=== PATIENT | female | born 1955 | race Caucasian/White ===

== ENCOUNTER → 2017-01-23 | Outpatient (CLI) | payer MEDICARE | PROVIDERS: ATTEND Nurse Practitioner Family | DX: F33.1 Major depressive disorder, recurrent, moderate (principal); F41.8 Other specified anxiety disorders | CPT/HCPCS: 90792 ==

== ENCOUNTER → 2017-01-27 | Outpatient (CLI) | payer MEDICARE | LOC: MW.CHPS 08:00 | PROVIDERS: ATTEND Physician Assistant | DX: L72.11 Pilar cyst (principal); L82.1 Other seborrheic keratosis | CPT/HCPCS: 11402; 17110; 99202 ==

== ENCOUNTER → 2017-02-06 | Outpatient (CLI) | payer MEDICARE | PROVIDERS: ATTEND Nurse Practitioner Family | DX: F33.1 Major depressive disorder, recurrent, moderate (principal); F41.8 Other specified anxiety disorders | CPT/HCPCS: 99214 ==

== ENCOUNTER 2017-03-01 23:30 | Emergency (ER) | payer MEDICARE ==
--- NOTE | 2017-03-01 23:45 | EDM.PDOC ---
ED HPI GENERAL MEDICAL PROBLEM - General Chief Complaint: Upper Extremity Injury/Pain Stated Complaint: POSSIBLE BREAK OR FRACTURE OF RIGHT WRIST Time Seen by Provider: 03/01/17 23:39 - History of Present Illness INITIAL COMMENTS - FREE TEXT/NARRATIVE: HISTORY AND PHYSICAL: History of present illness: Patient is a 61-year-old white female who suffers from acute right hand and wrist injury status post fall this happened about 6 hours prior she denies other tremor concern Review of systems: As per history of present illness and below otherwise all systems reviewed and negative. Past medical history: As per history of present illness and as reviewed below otherwise noncontributory. Surgical history: As per history of present illness and as reviewed below otherwise noncontributory. Social history: No reported history of drug or alcohol abuse. Family history: As per history of present illness and as reviewed below otherwise noncontributory. Physical exam: HEENT: Atraumatic, normocephalic, pupils reactive, negative for conjunctival pallor or scleral icterus, mucous membranes moist, throat clear, neck supple, nontender, trachea midline. Lungs: Clear to auscultation, breath sounds equal bilaterally, chest nontender. Heart: S1S2, regular, negative for clicks, rubs, or JVD. Abdomen: Soft, nondistended, nontender. Negative for masses or hepatosplenomegaly. Negative for costovertebral tenderness. Pelvis: Stable nontender. Genitourinary: Deferred. Rectal: Deferred. Extremities: Patient's pain and tenderness over the dorsal aspect of her distal radius and also the dorsal aspect of her proximal hand no gross deformity CMS neurovascular exams unremarkable Neuro: Awake, alert, oriented. Cranial nerves II through XII unremarkable. Cerebellum unremarkable. Motor and sensory unremarkable throughout. Exam nonfocal. Diagnostics: X-ray right hand/wrist Therapeutics: To be determined Impression: #1 observation status post fall #2 acute right wrist/hand injury Definitive disposition and diagnosis as appropriate pending reevaluation and review of above. - Related Data Allergies Allergy/AdvReac Type Severity Reaction Status Date / Time prochlorperazine Allergy Anaphylactic Verified 03/01/17 23:36 [From Compazine] Shock Home Meds: Home Meds Levothyroxine 112 mcg PO ACBREAKFAST 03/01/17 [History] oxyCODONE HCl [Oxycodone HCl] 5 mg PO TID 03/01/17 [History] Review of Systems - Review of Systems Review Of Systems: ROS reveals no pertinent complaints other than HPI. ED EXAM, GENERAL - Physical Exam Exam: See Below (See dictation) Course - Vital Signs Last Recorded V/S: Last Vital Signs Temp 36.8 C 03/01/17 23:39 Pulse 126 H 03/01/17 23:39 Resp 17 03/01/17 23:39 BP 139/79 03/01/17 23:39 Pulse Ox 95 03/01/17 23:39 - Orders/Labs/Meds Orders: Active Orders 24 hr Category Date Time Status Hand Comp Min 3V Rt [CR] Stat Exams 03/01/17 23:38 Taken Wrist Comp Min 3V Rt [CR] Stat Exams 03/01/17 23:38 Taken Departure - Departure Time of Disposition: 00:57 Disposition: Home, Self-Care 01 Condition: good Clinical Impression: Wrist injury - Discharge Information Forms: ED Department Discharge Additional Instructions: The following information is given to patients seen in the emergency department who are being discharged to home. This information is to outline your options for follow-up care. We provide all patients seen in our emergency department with a follow-up referral. The need for follow-up, as well as the timing and circumstances, are variable depending upon the specifics of your emergency department visit. If you don't have a primary care physician on staff, we will provide you with a referral. We always advise you to contact your personal physician following an emergency department visit to inform them of the circumstance of the visit and for follow-up with them and/or the need for any referrals to a consulting specialist. The emergency department will also refer you to a specialist when appropriate. This referral assures that you have the opportunity for followup care with a specialist. All of these measure are taken in an effort to provide you with optimal care, which includes your followup. Under all circumstances we always encourage you to contact your private physician who remains a resource for coordinating your care. When calling for followup care, please make the office aware that this follow-up is from your recent emergency room visit. If for any reason you are refused follow-up, please contact the [facility] emergency department at and asked to speak to the emergency department charge nurse. [facility] Professional [address], [address] [place] [address] Splint as directed Motrin/Tylenol as directed followup orthopedic clinic above call for appointment return as needed as discussed - My Orders Last 24 Hours: My Active Orders 03/01/17 23:38 Hand Comp Min 3V Rt [CR] Stat Wrist Comp Min 3V Rt [CR] Stat - Assessment/Plan Last 24 Hours: My Active Orders 03/01/17 23:38 Hand Comp Min 3V Rt [CR] Stat Wrist Comp Min 3V Rt [CR] Stat
[2017-03-02 01:11] VITALS: BP 115/80
--- NOTE | 2017-03-02 15:32 | CR ---
EXAM DATE: 03/01/17 PATIENT'S AGE: 61 Patient: DEL OG Facility: [place], [place] Site . Site : 1955 Study: XRay Extremity Right [id number]/5/2017 12:13:49 AM Ordering Physician: Beth Sawant Final Report: Indication: Injury Technique: Three views of the right wrist Comparison: None available Findings: Bones: A tiny calcification along the dorsum of the distal radius could be chronic. Otherwise no acute displaced fracture or dislocation. Joint spaces: Unremarkable. Soft tissues: Unremarkable. Impression: A tiny calcification along the dorsum of the distal radius may be chronic. Correlate for focal tenderness. Dictated by Obei Hawkins MD @ 03/02/2017 12:43:10 AM Dictated by: Obie Hawkins MD @ 03/02/2017 00:43:14 (Electronic Signature) Report Signed by Proxy. CT
--- NOTE | 2017-03-02 15:33 | CR ---
EXAM DATE: 03/01/17 PATIENT'S AGE: 61 Patient: DEL OG Facility: [place], [place] Site . Site : 1955 Study: XRay Extremity Right [id number]/5/2017 12:14:50 AM Ordering Physician: Beth Sawant Final Report: Indication: Injury Technique: Three views of the right hand Comparison: None available Findings: Bones: No definite acute fracture or dislocation. Small calcifications adjacent to the distal aspects of the 3rd and 4th middle phalanges could be chronic or degenerative. Joint spaces: Unremarkable. Soft tissues: Unremarkable. Impression: No definite acute fracture seen. Small calcifications adjacent to the distal aspects of the 3rd and 4th middle phalanges could be chronic or degenerative. Correlate for focal tenderness. Dictated by Obie Hawkins MD @ 03/02/2017 12:46:54 AM Dictated by: Obie Hawkins MD @ 03/02/2017 00:46:59 (Electronic Signature) Report Signed by Proxy. CT
== END 2017-03-02 01:05 | disposition home or self-care (01) ==
LOC: MW.ED 23:30
DX: S69.91XA Unspecified injury of right wrist, hand and finger(s), initial encounter (principal); Z88.8 Allergy status to other drugs, medicaments and biological substances; W19.XXXA Unspecified fall, initial encounter
CPT/HCPCS: 73110-26-RT; 73110-RT; 73130-26-RT; 73130-RT; 99282; 99283